=== PATIENT | female | born 1980 | race Caucasian/White ===

== ENCOUNTER 2024-07-17 08:22 | Emergency (ER) | payer BC, SELFPAY ==
[2024-07-17 08:22] VITALS: BP 171/100; BP 172/101; PULSE 67; PULSE 70; RESP 16; TEMP 36.1; O2SAT 97; BMI 32.8
--- NOTE | 2024-07-17 08:41 | CT_ITS ---
STUDY: CT ABDOMEN AND PELVIS WITH CONTRAST REASON FOR EXAM: Female, 44 years old. LLQ abd pain RADIATION DOSAGE (If Supplied By Facility): CTDIvol = ( 19.84 ) mGy, DLP = ( 1034.40 ) mGycm TECHNIQUE: Transaxial images were obtained from the dome of the diaphragm to the symphysis pubis without oral contrast. IV 100mL Isovue-370 was administered. Sagittal and coronal images were reconstructed. Individualized dose optimization techniques were used for this CT. COMPARISON: None. FINDINGS: The visualized lung bases are unremarkable. The visualized portions of the heart are within normal limits. Normal liver. There are surgical clips in the gallbladder fossa consistent with a prior cholecystectomy. Normal spleen. Normal pancreas. Normal bilateral adrenal glands. No obstructive uropathy, or solid renal lesion, there are simple bilateral renal cysts. Normal visualized stomach. Nondistended fluid-filled small bowel loops suggests ileus perhaps due to retained stool in the majority of the colon. There is non-visualization of the appendix. Normal abdominal aorta. Normal inferior vena cava. Normal retroperitoneum. Normal urinary bladder. Normal-appearing uterus. There is a 5.2 cm right adnexal cyst. Normal abdominal wall. Normal osseous structures. CT/Abdomen/Pelvis W IV Cont ONLY IMPRESSION: 5.2 cm not simple right adnexal region cyst, given patient''s age, a dedicated pelvic ultrasound recommended for more thorough evaluation Small bowel ileus likely due to retained stool throughout the colon Simple bilateral renal cysts, no specific follow-up needed Electronically Signed: Matthew Martin MD at 11:26 EDT ,
[2024-07-17] MEDS: 0.9% Normal Saline (1000mL) 1,000 ML 999 ML IV (08:48)
[2024-07-17] MEDS: Morphine 4 MG/ML Syringe IV (08:48)
[2024-07-17] MEDS: Ondansetron 4 MG/2 ML Vial IV (08:48)
[2024-07-17 08:56] LABS: Absolute Lymphocyte Count 2.15 X10^3/uL (0.83-4.51); Absolute Neutrophil Count 4.4 X10^3/uL (2.0-7.7); Basophil# 0.07 X10^3/uL; Basophil% 0.9 % (0-1); Eosinophil# 0.31 X10^3/uL; Eosinophils% 4.1 % (0-5); Hematocrit 46.2 % (37-47); Hemoglobin 15.5 g/dL (12.0-15.0); Lymphocyte # 2.15 X10^3/ul (0.83-4.51); Lymphocyte % 28.6 % (19-41); Mean Corp Hgb Conc 33.5 g/dL (32-36); Mean Corpuscular Hgb 31.4 pg (27.0-32.0); Mean Corpuscular Volume 93.5 fL (81-99); Mean Platelet Vol. 9.4 fl (6.2-12.0); Monocyte# 0.57 X10^3/uL; Monocyte% 7.6 % (0-10); NRBC Flagged by Analyzer 0 % (0-5); Neutrophil # 4.39 X10^3/uL (2.7-7.7); Neutrophil % 58.4 % (47-70); Platelet Count 217 K/mm3 (150-450); RBC Distribution Width CV 13.5 % (11.6-14.6); RBC Distribution Width SD 46.5 fl (35.1-43.9); Red Blood Count 4.94 M/mm3 (4.2-5.4); White Blood Count 7.5 K/mm3 (4.4-11.0)
--- NOTE | 2024-07-17 08:59 | EDS_ITS ---
HPI History of Present Illness Chief Complaint: Abd Pain Narrative Narrative: Patient is a 44-year-old female who presents to the emergency department chief complaint of abdominal pain. Patient states that on Tuesday she started to develop abdominal pain on the left side that progressively worsened. States that she went to an urgent care earlier today and when they did an exam on her they advised her to come to the emergency department for further evaluation management. She did note that her last week was diagnosed and treated for trichomonas and she has not been treating with sexually active with him prior to him being treated. Patient denies any other sick contacts. Patient rates her abdominal pain a 7 out of 10. PFS PFS Medical History no medical history Home Medications ?Medication ?Instructions ?Recorded ?Last Taken ?Type dicyclomine 10 mg capsule 10 mg PO TID #30 caps 07/17/24 Unknown Rx ondansetron 4 mg disintegrating 4 mg PO Q6H PRN nausea and 07/17/24 Unknown Rx tablet vomiting #20 tabs polyethylene glycol 3350 17 17 g PO BID #238 grams 07/17/24 Unknown Rx gram/dose oral powder (Miralax) Allergy/AdvReac Type Severity Reaction Status Date / Time Penicillins (PCN) AdvReac Rash Verified 07/17/24 08:23 Social History Smoking Status: Never smoker ROS ROS ED ROS Narrative Constitutional: Patient denies any fevers, lightness, dizziness Eyes: Denies change in vision double vision blurry vision Cardiovascular: Denies chest pain or palpitations Respiratory: Denies coughing wheezing shortness of breath Abdomen: Complains of abdominal pain as noted above as well as nausea denies diarrhea : Denies any urinary symptoms Neurological: Denies numbness, weakness, tingling Skin: Denies rashes or lesions EXAM Physical Exam Narrative Exam Narrative: General: Patient lying in bed did appear to be uncomfortable secondary to her a bdominal pain Head: Atraumatic, normocephalic Eyes: PERRL bilaterally, EOMI bilateral, no conjunctival injection noted Neck: Soft, supple, trachea midline Cardiovascular: Regular rate and rhythm no murmurs gallops rubs noted Respiratory: Clear to auscultation bilaterally no rales rhonchi wheeze noted Abdomen: Soft, nondistended, tender to palpation in the left lower quadrant no rebound or guarding on exam, bowel sounds present x 4 Extremities: +5/5 strength noted in the bilateral upper and lower extremities, no pedal edema on exam, radial pulses +2/4 in the bilateral upper extremities Neurological: Patient following commands knew that she was at [facility] years 2023 Skin: Warm, dry, tact Const Vital Signs: 07/17/24 08:22 07/17/24 08:22 07/17/24 10:20 Temperature 96.9 F L Temperature Source Temporal Pulse Rate 67 70 71 Respiratory Rate 16 16 Blood Pressure 171/100 H 172/101 H 157/78 H Blood Pressure Mean 123 124 104 Pulse Ox 97 97 Oxygen Delivery Method Room Air Room Air 07/17/24 12:00 Temperature Temperature Source Pulse Rate 67 Respiratory Rate 14 Blood Pressure 159/91 H Blood Pressure Mean 113 Pulse Ox Oxygen Delivery Method MDM MDM MDM Narrative Medical decision making narrative: Patient is a 44-year-old female who presented to the emergency department chief complaint of abdominal pain since Tuesday. Patient well the workup performed here on the differential diagnose includes Melamin to diverticulitis, PID, UTI, pyelonephritis, urolithiasis. Once workup is obtained reviewed she will be reevaluated. Patient given IV fluids, morphine Zofran. Patient CBC reviewed and showed no evidence leukocytosis white blood count normal at 7.5, hemoglobin 15.5, plate count normal at 217. Patient's sodium normal 140, potassium normal 4.2, creatinine normal at 0.72. Patient's AST and ALT were 8 and 12 respectively, lipase was normal at 13. Patient's urinalysis showed no evidence of infection test was negative. Patient was negative for gonorrhea chlamydia trichomonas was added on. Patient CT abdomen pelvis with IV contrast showed a 5.2 cm not simple right adnexal region cyst was recommending ultrasound which was added on, small bowel ileus likely due to retained stool throughout the colon. Patient's transvaginal ultrasound was reviewed and showed previously noted cyst in the right adnexal region is complex with stranding recommending follow-up ultrasound to ensure resolution this measured 4.8 x 2.9 x 2.4 cm. Patient's right ovary measured 5.9 x 4.1 x 4.5 cm and her left ovary measured 2.5 x 1.6 x 1.7 cm she has multiple follicles without a dominant cyst noted no free fluid in her pelvis. On reevaluation the patient she states that she has no pain in the right side and repeat abdominal exam was performed and had no tenderness to palpation in the right lower quadrant with mild tenderness palpation still in the left lower quadrant. Did discuss case with on-call physician OB Dr. Garay who states that she needs to follow-up in their office. I discussed this with the patient and she was encouraged to follow-up with primary care physician as well. She will be given prescriptions for Zofran, Bentyl and MiraLAX. Patient is requesting some nausea medication as well which will be given Zofran. Patient was encouraged to return with worsening pain, persistent vomiting not tolerating oral intake or any other concerns. She is agreeable with this plan all question concerns answered she is discharged home in stable condition. Lab Data Labs: Laboratory Results - last 24 hr 07/17/24 07/17/24 08:50 10:15 WBC 7.5 RBC 4.94 Hgb 15.5 H Hct 46.2 MCV 93.5 MCH 31.4 MCHC 33.5 RDW Std Deviation 46.5 H RDW Coeff of Jose Francisco 13.5 Plt Count 217 MPV 9.4 Immature Gran % (Auto) 0.400 Neut % (Auto) 58.4 Lymph % (Auto) 28.6 [place] % (Auto) 7.6 Eos % (Auto) 4.1 Baso % (Auto) 0.9 Absolute Neuts (auto) 4.4 Absolute Lymphs (auto) 2.15 Nucleated RBC % 0 Sodium 140 Potassium 4.2 Chloride 111 H Carbon Dioxide 23.0 Anion Gap 6 BUN 8 Creatinine 0.72 Estim Creat Clear Calc 98.57 Est GFR (MDRD) Af Amer 113 Est GFR (MDRD) Non-Af 93 BUN/Creatinine Ratio 11.1 Glucose 102 Calcium 9.2 Total Bilirubin 0.50 AST 8 L ALT 12 L Alkaline Phosphatase 74 Total Protein 7.4 Albumin 3.8 Globulin 3.6 Albumin/Globulin Ratio 1.1 Lipase 13 Urine Color Yellow Urine Clarity Clear Urine pH 7.0 Ur Specific [place] 1.010 Urine Protein Negative Urine Glucose (UA) Normal Urine Ketones Negative Urine Occult Blood Negative Urine Nitrite Negative Urine Bilirubin Negative Urine Urobilinogen Normal Ur Leukocyte Esterase 25 H Urine RBC 0 SEEN Urine WBC 0-5 SEEN Ur Squamous Epith Cells 0-5 SEEN Urine Bacteria 0 SEEN Urine Mucus 0 SEEN Urine Test Negative Radiography Diagnostic Testing: Clinical Impression(s) from Imaging Studies Abdomen/Pelvis CT 07/17/24 08:41 IMPRESSION: 5.2 cm not simple right adnexal region cyst, given patient''s age, a dedicated pelvic ultrasound recommended for more thorough evaluation Small bowel ileus likely due to retained stool throughout the colon Simple bilateral renal cysts, no specific follow-up needed Electronically Signed: Matthew Martin MD at 11:26 EDT , Transvaginal US 07/17/24 11:38 IMPRESSION: Previously noted cyst in the right adnexal region on the CT scan is a complex cyst with stranding. This needs close sonographic follow-up to ensure resolution. Nonspecific hyperechoic focus within the right ovary measuring 2 cm of uncertain significance it does not have aggressive sonographic characteristics Sonographically normal uterus and left ovary Electronically Signed: Matthew Martin MD at 13:09 EDT , Discharge Plan Triage Chief Complaint: Abd Pain ED Provider: Delano Ramey Dx/Rx/DC Orders Clinical Impression: Abdominal pain, Constipation, Complex cyst of right ovary Prescriptions: New dicyclomine 10 mg capsule 10 mg PO TID Qty: 30 0RF polyethylene glycol 3350 [Miralax] 17 gram/dose powder 17 g PO BID Qty: 238 0RF ondansetron 4 mg tablet,disintegrating 4 mg PO Q6H PRN (Reason: nausea and vomiting) Qty: 20 0RF Primary Care Provider: Care Physician,No Primary Referrals: Jackie Garay MD [Med Staff - Active Staff] - Delvis Bolden MD [Non-Staff] - Care Physician,No Primary [Primary Care Provider] - Activity Restrictions/Additional Instructions: Follow-up on your trichomonas culture results with your primary care physician they referred to or call back to follow-up on them yourself. Follow-up with OB on your ultrasound report that you were provided here. Return with worsening symptoms or other concerns. Take prescriptions as prescribed. Print Language: Citizen Of [place] Disposition Disposition: Home, Self Care
[2024-07-17 09:19] LABS: ALB/GLOB Ratio 1.1 RATIO (0.9-2.4); AST(SGOT) 8 U/L (15-37); Alanine Aminotransfer ALT/SGPT 12 U/L (13-56); Albumin, Serum 3.8 g/dL (3.2-5.0); Alkaline Phosphatase 74 U/L (45-117); Anion Gap 6 (5-15); BUN 8 mg/dL (7-18); BUN/Creat Ratio 11.1 RATIO (10-20); Calcium,Total 9.2 mg/dL (8.5-10.1); Chloride 111 mmol/L (98-107); Creatinine, Serum 0.72 mg/dL (0.55-1.02); EST Glomerular Filtration Rate 93 mL/min (>60); Est Glom Filt Rate - Afr Amer 113 mL/min (>60); Estimated Creatinine Clearance 98.57 ml/min; Globulin 3.6 g/dL (2.2-4.2); Glucose 102 mg/dL (74-106); Lipase 13 U/L (13-75); Potassium 4.2 mmol/L (3.5-5.1); Protein, Total 7.4 g/dL (6.4-8.2); Sodium Level 140 mmol/L (136-145)
[2024-07-17 10:20] VITALS: BP 157/78; PULSE 71
[2024-07-17 10:22] LABS: Bacteria 0 SEEN /hpf (None Seen); Mucous, Urine 0 SEEN /hpf (<or=2+); Red Blood Cells-Urine 0 SEEN /hpf (0-5)
[2024-07-17 10:36] LABS: Color, Urine Yellow (Yellow); Glucose, Dipstick Normal (Normal); Ketone-Dipstick Negative (Negative); Leukocyte Esterase-Dipstick 25 /ul (Negative); Nitrite-Dipstick Negative (Negative); Occult Blood-Urine Negative /ul (Negative); Protein-Dipstick Negative (Negative); Urine Bilirubin Dipstick Negative (Negative); Urine Clarity Clear (Clear); Urine Urobilinogen Normal (Normal)
[2024-07-17 10:54] LABS: Internal QC Validated? YES +Cl - CLEAR BKGD; Pregnancy, Urine Negative Negative
[2024-07-17 10:55] LABS: Squamous Epithelial Cells - UA 0-5 SEEN /hpf (5-10); White Blood Cells 0-5 SEEN /hpf (0-5)
--- NOTE | 2024-07-17 11:38 | US_ITS ---
STUDY: ULTRASOUND TRANSVAGINAL CLINICAL: Female, 44 years old. LLQ abd pain TECHNIQUE: Transvaginal COMPARISON: CT from earlier today FINDINGS: Normal uterine size measuring 9.5 cm in maximal craniocaudal dimension. There are no myometrial masses. Normal endometrial thickness measuring 7 mm. There are no endometrial masses, and there is no fluid in the endometrial cavity. Normal uterine cervix. Normal right ovary, measuring 5.9 x 4.1 x 4.5 cm. There is a complex 4.8 x 2.9 x 2.4 cm cyst. Given the patient''s age, follow-up ultrasound is recommended to ensure resolution. There is a nonspecific hyperechoic area adjacent to the right ovary measuring 2.0 cm. Normal left ovary, measuring 2.5 x 1.6 x 1.7 cm. There are multiple follicles without a dominant cyst. There is no free fluid in the pelvis. Polycystic ovary disease: No. US/Transvaginal Non- IMPRESSION: Previously noted cyst in the right adnexal region on the CT scan is a complex cyst with stranding. This needs close sonographic follow-up to ensure resolution. Nonspecific hyperechoic focus within the right ovary measuring 2 cm of uncertain significance it does not have aggressive sonographic characteristics Sonographically normal uterus and left ovary Electronically Signed: Matthew Martin MD at 13:09 EDT ,
[2024-07-17 12:00] VITALS: BP 159/91; PULSE 67; RESP 14
[2024-07-17 14:00] VITALS: BP 148/97; PULSE 71; RESP 14
[2024-07-17 15:46] VITALS: BP 159/74; PULSE 67; RESP 12; TEMP 36.1; O2SAT 100
--- NOTE | 2024-07-17 19:00 | ED.RN ---
pt notified of positive trichomonas test. verbalizes understanding and need for treatment. prescription for flagyl 500mg bid for 7 days called and left VM to [facility] in [place]
== END 2024-07-17 15:47 | disposition home or self-care (01) ==
PROVIDERS: Emergency Provider Emergency Medicine; Visit Provider Emergency Medicine
DX: R10.31 Right lower quadrant pain (principal); R11.0 Nausea; K59.00 Constipation, unspecified; N83.201 Unspecified ovarian cyst, right side
CPT/HCPCS: 74177; 76830; 80053; 81001; 81025; 83690; 85025; 87491; 87591; 87661; 96361; 96374; 96375; 99283; J7030; Q9967; A4216; J2405